=== PATIENT | male | born 1955 | race Caucasian/White ===

== ENCOUNTER 2018-03-23 06:11 | Emergency (ER) | payer BC ==
[2018-03-23 06:42] LABS: ABSOLUTE EOSINOPHILS # (AUTO) 0.2 10^3/uL (0.0-0.6); ABSOLUTE LYMPHOCYTES (AUTO) 1.1 10^3/uL (0.5-4.7); ABSOLUTE MONOCYTES (AUTO) 0.6 10^3/uL (0.1-1.4); ABSOLUTE NEUT (AUTO) 7.5 10^3/uL (1.7-8.2); BASOPHILS % (AUTO) 0.4 % (0-2); HEMATOCRIT 43.2 % (37.9-51.0); HEMOGLOBIN 15.6 g/dL (13.5-17.0); LYMPHOCYTES % (AUTO) 11.9 % (13-45); MEAN CORPUSCULAR HEMOGLOBIN 32.3 pg (27.0-33.4); MEAN CORPUSCULAR HGB CONC 36.1 g/dL (32.0-36.0); MEAN CORPUSCULAR VOLUME 89 fl (80-97); MONOCYTES % (AUTO) 6.4 % (3-13); PLATELET COUNT 373 10^3/uL (150-450); RED BLOOD COUNT 4.83 10^6/uL (4.35-5.55); RED CELL DISTRIBUTION WIDTH 12.9 % (11.5-14.0); SEGMENTED NEUTROPHILS % (AUTO) 79.3 % (42-78); TOTAL CELLS COUNTED % (AUTO) 100 %; WHITE BLOOD COUNT 9.5 10^3/uL (4.0-10.5)
[2018-03-23] MEDS ORDERED: NORMAL SALINE 1000 ML 1,000 ML IV ONE ×2 (06:52→09:26)
[2018-03-23 06:53] LABS: ALANINE AMINOTRANSFERASE 30 U/L (21-72); ALBUMIN 4.2 g/dL (3.5-5.0); ALKALINE PHOSPHATASE 105 U/L (38-126); ANION GAP 13 (5-19); ASPARTATE AMINO TRANSFERASE 26 U/L (17-59); BILIRUBIN,DIRECT 0.4 mg/dL (0.0-0.4); BILIRUBIN,TOTAL 0.5 mg/dL (0.2-1.3); BLOOD UREA NITROGEN 58 mg/dL (7-20); CALCIUM 9.9 mg/dL (8.4-10.2); CARBON DIOXIDE 22 mmol/L (22-30); CHLORIDE 103 mmol/L (98-107); CREATINE KINASE 156 U/L (55-170); GLUCOSE 109 mg/dL (75-110); POTASSIUM 4.2 mmol/L (3.6-5.0); SODIUM 138.3 mmol/L (137-145); TOTAL PROTEIN 7.3 g/dL (6.3-8.2)
--- NOTE | 2018-03-23 06:57 | ER Document Report ---
ED General - General Chief Complaint: Dizziness Stated Complaint: DIZZY Time Seen by Provider: 03/23/18 06:47 Mode of Arrival: Ambulatory Information source: Patient Notes: 62-year-old male with a history of hypertension presents emergency department with complaints of nausea, vomiting, myalgias, dizziness. Patient states that this is been going on for the last day. He thinks that this is heat related. 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 He states that he has been drinking less than normal. He has had minimal urine output. Patient denies any fever, chills, rhinorrhea, sore throat , cough, chest pain, shortness of breath, abdominal pain, numbness, tingling, weakness. Patient denies a history of hyperlipidemia, diabetes, coronary artery disease, family history of coronary artery disease. Patient does smoke. Patient denies any recent travel, surgery, history of DVT or PE, hormone use, history of malignancy. TRAVEL OUTSIDE OF THE [place] IN LAST 30 DAYS: No - HPI Onset: Last week Onset/Duration: Gradual Quality of pain: Achy Severity: Mild Associated symptoms: Nausea Exacerbated by: Denies Relieved by: Denies Similar symptoms previously: No Recently seen / treated by doctor: No - Related Data Allergies/Adverse Reactions: acetazolamide [From Diamox Sequels] Allergy (Verified 03/23/18 06:14) fluorescein Allergy (Verified 03/23/18 06:14) Past Medical History - General Information source: Patient - Social History Smoking Status: Current Every Day Smoker Chew tobacco use (# tins/day): No Frequency of alcohol use: Social Drug Abuse: None Family History: Reviewed & Not Pertinent Patient has suicidal ideation: No Patient has homicidal ideation: No Renal/ Medical History: Denies: Hx Peritoneal Dialysis Review of Systems - Review of Systems Constitutional: No symptoms reported EENT: No symptoms reported Cardiovascular: Dizziness Respiratory: No symptoms reported Gastrointestinal: Nausea, Vomiting Genitourinary: No symptoms reported Male Genitourinary: No symptoms reported Musculoskeletal: Muscle pain Skin: No symptoms reported Hematologic/Lymphatic: No symptoms reported Neurological/Psychological: No symptoms reported -: Yes All other systems reviewed and negative Physical Exam - Vital signs Vitals: Temp Pulse Resp BP Pulse Ox 97.7 F 80 20 108/65 97 03/23/18 06:15 03/23/18 06:15 03/23/18 06:15 03/23/18 06:15 03/23/18 06:15 Interpretation: Normal - Notes Notes: PHYSICAL EXAMINATION: GENERAL: Well-appearing, well-nourished and in no acute distress. HEAD: Atraumatic, normocephalic. EYES: Pupils equal round and reactive to light, extraocular movements intact, sclera anicteric, conjunctiva are normal. ENT: Nares patent, oropharynx clear without exudates. Moist mucous membranes. NECK: Normal range of motion, supple without lymphadenopathy LUNGS: Breath sounds clear to auscultation bilaterally and equal. No wheezes rales or rhonchi. HEART: Regular rate and rhythm without murmurs ABDOMEN: Soft, nontender, nondistended abdomen. No guarding, no rebound. No masses appreciated. Musculoskeletal: Normal range of motion, no pitting or edema. No cyanosis. NEUROLOGICAL: Cranial nerves grossly intact. Normal speech, normal gait. Normal sensory, motor exams PSYCH: Normal mood, normal affect. SKIN: Warm, Dry, normal turgor, no rashes or lesions noted. Course - Re-evaluation Re-evalutation: 03/23/18 09:42 Labs and imaging obtained. BUN and creatinine elevated. Patient dehydrated. Given 2L of fluids of in the ED. 03/23/18 10:15 On reevaluation, patient states that he is feeling improved. Orthostatic vital signs were done and were normal. Vital signs are stable. Patient instructed to continue consuming fluids, and a follow-up with his primary care physician for repeat lab work next week, and to return to the emergency department for any worsening symptoms. Patient is agreeable with plan of care. - Vital Signs Vital signs: Temp Pulse Resp BP Pulse Ox 97.7 F 65 21 H 109/68 95 03/23/18 06:15 03/23/18 07:40 03/23/18 10:00 03/23/18 10:00 03/23/18 10:00 - Laboratory Result Diagrams: 03/23/18 06:30 03/23/18 06:30 Laboratory results interpreted by me: 03/23/18 03/23/18 03/23/18 06:30 06:30 06:30 MCHC 36.1 H Seg Neutrophils % 79.3 H Lymphocytes % 11.9 L BUN 58 H Creatinine 1.98 H Est GFR ( Amer) 42 L Est GFR (Non-Af Amer) 35 L Magnesium 2.4 H Urine Glucose (UA) 03/23/18 07:21 MCHC Seg Neutrophils % Lymphocytes % BUN Creatinine Est GFR ( Amer) Est GFR (Non-Af Amer) Magnesium Urine Glucose (UA) 150 H - EKG Interpretation by Me Additional EKG results interpreted by me: 03/23/18 06:55 EKG: Ventricular rate 73, IN interval 164, QRS duration 162, QTc 481, sinus rhythm, right bundle branch block, left anterior fascicular block. 03/23/18 08:58 Repeat EKG: Ventricular rate 62, IN interval 168, QRS duration 160, QTc 455, normal sinus rhythm, right bundle branch block, left anterior fascicular block. Discharge - Discharge Clinical Impression: Dehydration Condition: Good Disposition: HOME, SELF-CARE Instructions: Dehydration ([facility]) Referrals: MARISA MATA MD [Primary Care Provider] - Follow up as needed
[2018-03-23 07:05] LABS: CREATINE KINASE MB 3.62 ng/mL (<4.55)
[2018-03-23 07:06] LABS: TROPONIN I < 0.012 ng/mL
--- NOTE | 2018-03-23 07:23 | RADIOLOGY REPORT (SQ) ---
EXAM DESCRIPTION: XR CHEST 1 VIEW COMPLETED DATE/TME: 03/23/2018 06:56 CLINICAL HISTORY: 62 years Male, dizziness COMPARISON: None. NUMBER OF VIEWS/TECHNIQUE: 1/AP FINDINGS: Adequate lung volume, clear parenchyma, normal cardiac silhouette, and intact bony thorax. IMPRESSION: No acute cardiopulmonary findings.
--- NOTE | 2018-03-23 07:40 | EKG REPORT ---
SEVERITY:- ABNORMAL ECG - SINUS RHYTHM RBBB AND LAFB : Confirmed by: Brock Wolfe MD 23-Mar-2018 07:40:07
[2018-03-23 07:48] LABS: APPEARANCE,URINE CLEAR; BILIRUBIN,URINE NEGATIVE (NEGATIVE); COLOR,URINE YELLOW; GLUCOSE, URINE 150 mg/dL (NEGATIVE); KETONES,URINE NEGATIVE (NEGATIVE); LEUKOCYTE ESTERASE,URINE NEGATIVE (NEGATIVE); NITRITE,URINE NEGATIVE (NEGATIVE); PROTEIN,URINE NEGATIVE (NEGATIVE); URIC ACID CRYSTALS,URINE FEW /HPF; URINE SPECIFIC GRAVITY 1.017; UROBILINOGEN,URINE NEGATIVE mg/dL (<2.0)
[2018-03-23 10:11] VITALS: BP 109/68
--- NOTE | 2018-03-23 13:34 | EKG REPORT ---
SEVERITY:- ABNORMAL ECG - SINUS RHYTHM RBBB AND LAFB : Confirmed by: Brock Wolfe MD 23-Mar-2018 13:33:32
== END 2018-03-23 10:56 | disposition home or self-care (01) ==
LOC: ER 06:11
DX: E86.0 Dehydration (principal); R42 Dizziness and giddiness; R11.2 Nausea with vomiting, unspecified; M79.1 Myalgia; I10 Essential (primary) hypertension; F17.200 Nicotine dependence, unspecified, uncomplicated
CPT/HCPCS: 93005; 99284; 96360; 36415; 82553; 82550; 83735; 85025; 80053; 81001; 84484; 71045; 93010; J7030

== ENCOUNTER → 2020-03-26 | Outpatient (CLI) | payer BC ==
[2020-03-26 08:53] LABS: POTASSIUM 4.5 mmol/L (3.6-5.0)
== END ==
LOC: OD 07:18
PROVIDERS: ATTEND Anesthesiology
DX: Z01.812 Encounter for preprocedural laboratory examination (principal)
CPT/HCPCS: 36415; 80051